=== PATIENT | female | born 1965 | race Caucasian/White ===

== ENCOUNTER 2017-11-27 19:45 | Inpatient (IN) | payer OTHER ==
[2017-11-27 20:35] LABS: AUTOMATED NEUTROPHIL # 21.5 TH/MM3 (1.8-7.7); BASOPHIL # 0.4 TH/MM3 (0-0.2); BASOPHIL % 1.7 % (0.0-2.0); EOSINOPHIL % 0.1 % (0.0-4.0); HEMATOCRIT 46.1 % (35.0-46.0); HEMOGLOBIN 15.5 GM/DL (11.6-15.3); LYMPH % 6.3 % (9.0-44.0); LYMPHOCYTE # 1.5 TH/MM3 (1.0-4.8); MEAN CELL VOLUME 94.6 FL (80.0-100.0); MEAN CORPUSCULAR HEMOGLOBIN 31.8 PG (27.0-34.0); MEAN CORPUSCULAR HGB CONC 33.6 % (32.0-36.0); MEAN PLATELET VOLUME 9.4 FL (7.0-11.0); MONO % 3.6 % (0.0-8.0); MONOCYTE # 0.9 TH/MM3 (0-0.9); NEUT % 88.3 % (16.0-70.0); PLATELET COUNT 241 TH/MM3 (150-450); RED BLOOD COUNT 4.87 MIL/MM3 (4.00-5.30); RED CELL DISTRIBUTION WIDTH 11.5 % (11.6-17.2); WHITE BLOOD COUNT 24.3 TH/MM3 (4.0-11.0)
[2017-11-27 20:36] LABS: HEMO FLAGS DIFF FINAL
[2017-11-27 20:44] LABS: CHLORIDE 99 MEQ/L (98-107); POTASSIUM 3.9 MEQ/L (3.5-5.1); SODIUM (NA) 136 MEQ/L (136-145)
[2017-11-27 20:47] LABS: ALBUMIN 3.3 GM/DL (3.4-5.0); ANION GAP 15 MEQ/L (5-15); BICARBONATE 21.6 MEQ/L (21.0-32.0); CALCIUM 8.8 MG/DL (8.5-10.1)
[2017-11-27 20:48] LABS: BLOOD UREA NITROGEN 22 MG/DL (7-18); GLUCOSE,RANDOM 131 MG/DL (74-106)
[2017-11-27 20:50] LABS: ALT (GPT) 22 U/L (10-53); AST (GOT) 14 U/L (15-37)
[2017-11-27 20:51] LABS: GLOMERULAR FILTRATION RATE 19 ML/MIN (>89)
[2017-11-27 20:52] LABS: TOTAL BILIRUBIN ADULT 0.6 MG/DL (0.2-1.0); TOTAL PROTEIN 6.7 GM/DL (6.4-8.2)
[2017-11-27 20:53] LABS: ALKALINE PHOSPHATASE 63 U/L (45-117)
[2017-11-27] MEDS: ONDANSETRON ODT 4 MG TAB PO (21:08)
[2017-11-27] MEDS: SODIUM CHLOR 0.9% 1000 ML INJ 1,000 ML IV ×2 (21:08→23:01)
[2017-11-27] MEDS: SODIUM CHLOR 0.9% 1000 ML INJ 800 ML IV (21:08)
[2017-11-27 21:58] LABS: BILIRUBIN, URINE SMALL (NEG); BLOOD, URINE MOD (NEG); GLUCOSE,URINE NEG (NEG); KETONE, URINE NEG (NEG); NITRITE,URINE NEG (NEG); URINE COLOR YELLOW (YELLW/STRAW); URINE LEUKOCYTE ESTERASE TRACE (NEG)
[2017-11-27 22:38] LABS: HYALINE CAST, URINE 50-100 /lpf (RARE); MUCUS URINE MOD /lpf (OCC)
[2017-11-27 22:39] LABS: BACTERIA, URINE MANY /hpf; COMMENT (UR) CULTURE INDICATED; CULTURE IF INDICATED CULTURE INDICATED; RBC, URINE 0-3 /hpf (0-3)
[2017-11-27 22:44] LABS: LACTIC ACID SEPSIS PROTOCOL 4.9 mmol/L (0.4-2.0)
[2017-11-27 22:51] LABS: LACTIC ACID GHOST NOT REPORTABLE
[2017-11-27] MEDS: metroNIDAZOLE 500 MG INJ 100 ML IV (23:01)
[2017-11-27] MEDS ORDERED: ACETAMINOPHEN 325 MG TAB PO (23:15)
[2017-11-27] MEDS ORDERED: SENNOSIDES 8.6 MG TAB PO (23:15)
[2017-11-27] MEDS: NURSING INFORMATION XX (23:15)
[2017-11-27] MEDS ORDERED: CHLORHEXIDINE GLUCONATE 2 % 1 PACK (2 CLOTHS) TOP (23:15)
[2017-11-27] MEDS ORDERED: LACTULOSE SYRUP 20 GM/30 ML CUP PO (23:15)
[2017-11-27] MEDS ORDERED: SODIUM CHLORIDE 0.9% FLUSH 10 ML FLUSH IV FLUSH (23:15)
[2017-11-27] MEDS ORDERED: METOCLOPRAMIDE HCL 10 MG/2 ML VIAL IV PUSH (23:15)
[2017-11-27] MEDS ORDERED: RESP: ALBUTEROL 2.5 MG/IPRATROPIUM 0.5 MG NEB (PRN) INH (23:15)
[2017-11-27] MEDS ORDERED: BISACODYL 10 MG SUPP RECTAL (23:15)
[2017-11-27] MEDS ORDERED: MAGNESIUM HYDROXIDE SUSP 30 ML CUP PO (23:15)
[2017-11-28] MEDS: SODIUM CHLOR 0.9% 1000 ML INJ 1,000 ML IV ×4 (00:07→03:34)
[2017-11-28] MEDS: FAMOTIDINE 20 MG/2 ML VIAL IV PUSH ×3 (00:26→20:57)
[2017-11-28] MEDS: CIPROFLOXACIN 400 MG PREMIX 200 ML IV ×3 (00:26→21:44)
[2017-11-28 02:56] LABS: LACTIC ACID 3.4 mmol/L (0.4-2.0)
[2017-11-28] MEDS: CHLORHEXIDINE GLUCONATE 2 % 1 PACK (2 CLOTHS) TOP (04:00)
[2017-11-28 05:15] LABS: AUTOMATED NEUTROPHIL # 12.1 TH/MM3 (1.8-7.7); BASOPHIL % 0.2 % (0.0-2.0); HEMATOCRIT 36.3 % (35.0-46.0); HEMOGLOBIN 11.4 GM/DL (11.6-15.3); LYMPH % 5.7 % (9.0-44.0); LYMPHOCYTE # 0.8 TH/MM3 (1.0-4.8); MEAN CELL VOLUME 95.6 FL (80.0-100.0); MEAN CORPUSCULAR HGB CONC 31.4 % (32.0-36.0); MEAN PLATELET VOLUME 9.8 FL (7.0-11.0); MONO % 4.2 % (0.0-8.0); MONOCYTE # 0.6 TH/MM3 (0-0.9); NEUT % 89.9 % (16.0-70.0); PLATELET COUNT 173 TH/MM3 (150-450); RED BLOOD COUNT 3.79 MIL/MM3 (4.00-5.30); RED CELL DISTRIBUTION WIDTH 11.9 % (11.6-17.2); WHITE BLOOD COUNT 13.5 TH/MM3 (4.0-11.0)
[2017-11-28 05:18] LABS: INTERNATIONAL NORMALIZED RATIO 1.4 RATIO; PROTHROMBIN TIME - PATIENT 14.4 SEC (9.8-11.6)
[2017-11-28 05:25] LABS: LACTIC ACID 2.9 mmol/L (0.4-2.0)
[2017-11-28 05:33] LABS: ALBUMIN 2.1 GM/DL (3.4-5.0); ALKALINE PHOSPHATASE 39 U/L (45-117); ALT (GPT) 15 U/L (10-53); ANION GAP 9 MEQ/L (5-15); AST (GOT) 12 U/L (15-37); BICARBONATE 20.2 MEQ/L (21.0-32.0); BLOOD UREA NITROGEN 16 MG/DL (7-18); CALCIUM 6.7 MG/DL (8.5-10.1); CALCIUM-PROTEIN CORRECTED 7.9 MG/DL (8.5-10.1); CHLORIDE 114 MEQ/L (98-107); CREATININE 0.97 MG/DL (0.50-1.00); GLOMERULAR FILTRATION RATE 60 ML/MIN (>89); GLUCOSE,RANDOM 101 MG/DL (74-106); MAGNESIUM 1.6 MG/DL (1.5-2.5); PHOSPHORUS 2.9 MG/DL (2.5-4.9); POTASSIUM 3.4 MEQ/L (3.5-5.1); SODIUM (NA) 143 MEQ/L (136-145); TOTAL BILIRUBIN ADULT 0.3 MG/DL (0.2-1.0); TOTAL PROTEIN 4.7 GM/DL (6.4-8.2)
[2017-11-28 05:38] LABS: MRSA PCR SURVEILLANCE MRSA NOT DETECTED (NOT DETECT)
[2017-11-28 05:41] LABS: HEMO FLAGS DIFF FINAL
[2017-11-28] MEDS ORDERED: SODIUM PHOSPHATE INJ 30 MMOL in SODIUM CHLOR 0.9% 250 ML INJ 240 ML IV (06:15)
[2017-11-28] MEDS ORDERED: POTASSIUM PHOSPHATE MONOBASIC 500 MG TAB PO (06:15)
[2017-11-28] MEDS ORDERED: MAGNESIUM SULFATE INJ 2 GM in SODIUM CHLORIDE 0.9% INJ 96 ML IV (06:15)
[2017-11-28] MEDS ORDERED: MAGNESIUM SULFATE INJ 4 GM in SODIUM CHLORIDE 0.9% INJ 92 ML IV (06:15)
[2017-11-28] MEDS ORDERED: POTASSIUM PHOSPHATE MONOBASIC 500 MG TAB PO/TUBE (06:15)
[2017-11-28] MEDS ORDERED: POTASSIUM CHLOR 40 MEQ PREMIX 100 ML IV ×2 (06:15)
[2017-11-28] MEDS ORDERED: POTASSIUM PHOSPHATE INJ 30 MMOL in SODIUM CHLOR 0.9% 250 ML INJ 250 ML IV (06:15)
[2017-11-28] MEDS: SODIUM CHLORIDE 0.9% FLUSH 10 ML FLUSH IV FLUSH ×2 (06:52→20:58)
[2017-11-28] MEDS: LACTATED RINGER'S 1000 ML INJ 1,000 ML IV ×2 (06:57→17:26)
[2017-11-28] MEDS: DOCUSATE SODIUM 50 MG/SENNA 8.6 MG TAB PO ×2 (07:12→20:59)
[2017-11-28] MEDS: ENOXAPARIN SODIUM 30 MG/0.3 ML SYRINGE SQ (07:18)
[2017-11-28] MEDS: metroNIDAZOLE 500 MG TAB PO ×3 (07:18→21:44)
[2017-11-28] MEDS: MAGNESIUM OXIDE 400 MG TAB PO (09:51)
[2017-11-28] MEDS ORDERED: CHLORHEXIDINE GLUCONATE 2 % 1 PACK (2 CLOTHS)(extra cloths) TOPICAL (10:00)
[2017-11-28] MEDS: ONDANSETRON HCL 4 MG/2 ML VIAL IV PUSH (10:58)
[2017-11-28] MEDS: POTASSIUM CHLOR 20 MEQ PREMIX 100 ML IV ×2 (11:04→13:13)
[2017-11-28 11:51] LABS: C. DIFF EPI 027 PRESUMPTIVE NEGATIVE (NEGATIVE); C. DIFF TOXIN PCR NEGATIVE (NEGATIVE)
[2017-11-28] MEDS: ACETAMIN 325 MG/BUTALBITAL 50 MG/CAFFEINE 40 MG TAB PO ×2 (13:13→18:40)
[2017-11-29] MEDS: ACETAMIN 325 MG/BUTALBITAL 50 MG/CAFFEINE 40 MG TAB PO ×2 (00:02→07:56)
[2017-11-29] MEDS: CHLORHEXIDINE GLUCONATE 2 % 1 PACK (2 CLOTHS)(taper/protocol) TOPICAL (04:00)
[2017-11-29] MEDS: CHLORHEXIDINE GLUCONATE 2 % 1 PACK (2 CLOTHS) TOP (04:00)
[2017-11-29 05:26] LABS: CHLORIDE 112 MEQ/L (98-107); POTASSIUM 3.2 MEQ/L (3.5-5.1); SODIUM (NA) 143 MEQ/L (136-145)
[2017-11-29 05:29] LABS: HEMATOCRIT 33.8 % (35.0-46.0); HEMOGLOBIN 11.1 GM/DL (11.6-15.3); MEAN CELL VOLUME 95.3 FL (80.0-100.0); MEAN CORPUSCULAR HEMOGLOBIN 31.4 PG (27.0-34.0); MEAN CORPUSCULAR HGB CONC 32.9 % (32.0-36.0); MEAN PLATELET VOLUME 9.4 FL (7.0-11.0); PLATELET COUNT 144 TH/MM3 (150-450); RED BLOOD COUNT 3.55 MIL/MM3 (4.00-5.30); RED CELL DISTRIBUTION WIDTH 11.4 % (11.6-17.2); REVIEW FLAG FINAL; WHITE BLOOD COUNT 8.6 TH/MM3 (4.0-11.0)
[2017-11-29 05:36] LABS: ANION GAP 7 MEQ/L (5-15); BICARBONATE 24.1 MEQ/L (21.0-32.0); BLOOD UREA NITROGEN 5 MG/DL (7-18); CALCIUM 8.1 MG/DL (8.5-10.1); CREATININE 0.53 MG/DL (0.50-1.00); GLOMERULAR FILTRATION RATE 120 ML/MIN (>89); GLUCOSE,RANDOM 105 MG/DL (74-106)
[2017-11-29] MEDS: metroNIDAZOLE 500 MG TAB PO ×2 (05:53→13:51)
[2017-11-29] MEDS: LACTATED RINGER'S 1000 ML INJ 1,000 ML IV ×4 (05:54→20:46)
[2017-11-29] MEDS: DOCUSATE SODIUM 50 MG/SENNA 8.6 MG TAB PO ×2 (07:17→20:45)
[2017-11-29] MEDS: ENOXAPARIN SODIUM 30 MG/0.3 ML SYRINGE SQ (07:55)
[2017-11-29] MEDS: FAMOTIDINE 20 MG/2 ML VIAL IV PUSH ×2 (07:56→20:45)
[2017-11-29] MEDS: SODIUM CHLORIDE 0.9% FLUSH 10 ML FLUSH IV FLUSH ×2 (07:56→20:45)
[2017-11-29] MEDS: POTASSIUM CHLORIDE 25 MEQ EFFERVESCENT TAB PO (07:57)
[2017-11-29] MEDS: CIPROFLOXACIN 400 MG PREMIX 200 ML IV ×2 (09:15→20:46)
[2017-11-29] MEDS: ONDANSETRON HCL 4 MG/2 ML VIAL IV PUSH (11:16)
[2017-11-29] MEDS: ALUMINUM/MAGNESIUM/SIMETH 30 ML CUP PO (15:00)
[2017-11-29] MEDS ORDERED: ALUMINUM/MAGNESIUM/SIMETH 30 ML CUP PO (15:00)
[2017-11-29] MEDS: ACETAMINOPHEN/HYDROcodone 325 MG/5 MG TAB PO ×3 (15:03→22:20)
[2017-11-29] MEDS: METOCLOPRAMIDE HCL 10 MG/2 ML VIAL IV PUSH ×2 (15:03→22:21)
[2017-11-29] MEDS: ENALAPRILAT 1.25 MG/ML VIAL IV PUSH (22:11)
[2017-11-29] MEDS: POTASSIUM CHLOR 20 MEQ PREMIX 100 ML IV (23:26)
[2017-11-30] MEDS: POTASSIUM CHLOR 20 MEQ PREMIX 100 ML IV ×2 (01:12→03:23)
[2017-11-30] MEDS: CHLORHEXIDINE GLUCONATE 2 % 1 PACK (2 CLOTHS) TOP (03:44)
[2017-11-30] MEDS: ACETAMIN 325 MG/BUTALBITAL 50 MG/CAFFEINE 40 MG TAB PO ×2 (03:47→17:02)
[2017-11-30] MEDS: CHLORHEXIDINE GLUCONATE 2 % 1 PACK (2 CLOTHS)(taper/protocol) TOPICAL (03:47)
[2017-11-30] MEDS: LACTATED RINGER'S 1000 ML INJ 1,000 ML IV (05:22)
[2017-11-30 06:20] LABS: HEMATOCRIT 33.8 % (35.0-46.0); HEMOGLOBIN 10.9 GM/DL (11.6-15.3); MEAN CELL VOLUME 95.1 FL (80.0-100.0); MEAN CORPUSCULAR HEMOGLOBIN 30.7 PG (27.0-34.0); MEAN CORPUSCULAR HGB CONC 32.3 % (32.0-36.0); MEAN PLATELET VOLUME 9.5 FL (7.0-11.0); PLATELET COUNT 156 TH/MM3 (150-450); RED BLOOD COUNT 3.56 MIL/MM3 (4.00-5.30); RED CELL DISTRIBUTION WIDTH 11.1 % (11.6-17.2); REVIEW FLAG FINAL; WHITE BLOOD COUNT 8.1 TH/MM3 (4.0-11.0)
[2017-11-30 06:38] LABS: ANION GAP 6 MEQ/L (5-15); BICARBONATE 24.1 MEQ/L (21.0-32.0); BLOOD UREA NITROGEN 2 MG/DL (7-18); CHLORIDE 113 MEQ/L (98-107); CREATININE 0.38 MG/DL (0.50-1.00); GLOMERULAR FILTRATION RATE 176 ML/MIN (>89); GLUCOSE,RANDOM 100 MG/DL (74-106); SODIUM (NA) 143 MEQ/L (136-145)
[2017-11-30] MEDS: ENALAPRILAT 1.25 MG/ML VIAL IV PUSH (08:14)
[2017-11-30] MEDS: ENOXAPARIN SODIUM 30 MG/0.3 ML SYRINGE SQ (08:24)
[2017-11-30] MEDS: FAMOTIDINE 20 MG/2 ML VIAL IV PUSH (08:24)
[2017-11-30] MEDS: SODIUM CHLORIDE 0.9% FLUSH 10 ML FLUSH IV FLUSH ×2 (08:25→21:49)
[2017-11-30] MEDS: DOCUSATE SODIUM 50 MG/SENNA 8.6 MG TAB PO (09:00)
[2017-11-30] MEDS: ACETAMINOPHEN/HYDROcodone 325 MG/5 MG TAB PO (12:08)
[2017-11-30] MEDS: LORazepam 0.5 MG TAB PO (12:08)
[2017-11-30] MEDS: ATENOLOL 25 MG TAB PO ×2 (12:08→21:48)
[2017-11-30] MEDS: CIPROFLOXACIN 400 MG PREMIX 200 ML IV (12:08)
[2017-11-30] MEDS: METOCLOPRAMIDE HCL 10 MG/2 ML VIAL IV PUSH (12:08)
[2017-11-30] MEDS: CIPROFLOXACIN 500 MG TAB PO (21:48)
[2017-12-01] MEDS: CHLORHEXIDINE GLUCONATE 2 % 1 PACK (2 CLOTHS) TOP (04:00)
[2017-12-01] MEDS: CHLORHEXIDINE GLUCONATE 2 % 1 PACK (2 CLOTHS)(taper/protocol) TOPICAL (04:00)
[2017-12-01 07:53] LABS: CHLORIDE 111 MEQ/L (98-107); POTASSIUM 3.3 MEQ/L (3.5-5.1); SODIUM (NA) 144 MEQ/L (136-145)
[2017-12-01 08:00] LABS: CALCIUM 8.1 MG/DL (8.5-10.1)
[2017-12-01] MEDS: ENOXAPARIN SODIUM 30 MG/0.3 ML SYRINGE SQ (08:00)
[2017-12-01 08:01] LABS: ANION GAP 6 MEQ/L (5-15); BICARBONATE 26.6 MEQ/L (21.0-32.0); BLOOD UREA NITROGEN 7 MG/DL (7-18); GLUCOSE,RANDOM 98 MG/DL (74-106); HEMATOCRIT 34.5 % (35.0-46.0); HEMOGLOBIN 10.9 GM/DL (11.6-15.3); MEAN CELL VOLUME 95.4 FL (80.0-100.0); MEAN CORPUSCULAR HEMOGLOBIN 30.3 PG (27.0-34.0); MEAN CORPUSCULAR HGB CONC 31.7 % (32.0-36.0); MEAN PLATELET VOLUME 9.7 FL (7.0-11.0); PLATELET COUNT 168 TH/MM3 (150-450); RED BLOOD COUNT 3.61 MIL/MM3 (4.00-5.30); RED CELL DISTRIBUTION WIDTH 11.6 % (11.6-17.2); REVIEW FLAG FINAL; WHITE BLOOD COUNT 6.4 TH/MM3 (4.0-11.0)
[2017-12-01 08:04] LABS: CREATININE 0.46 MG/DL (0.50-1.00); GLOMERULAR FILTRATION RATE 142 ML/MIN (>89)
[2017-12-01] MEDS: SODIUM CHLORIDE 0.9% FLUSH 10 ML FLUSH IV FLUSH (09:00)
[2017-12-01] MEDS: CIPROFLOXACIN 500 MG TAB PO (09:19)
[2017-12-01] MEDS: ATENOLOL 25 MG TAB PO (09:19)
[2017-12-01] MEDS: ACETAMIN 325 MG/BUTALBITAL 50 MG/CAFFEINE 40 MG TAB PO (09:28)
== END 2017-12-01 10:43 | disposition home or self-care (01) | DRG 871 ==
LOC: PHICU 11-28 09:18 → PH3B 11-30 10:06 → PHED 19:45 → PHEDA 23:19
DX: A41.89 Other specified sepsis (principal); R65.21 Severe sepsis with septic shock; E87.2 Acidosis; N17.9 Acute kidney failure, unspecified; A03.9 Shigellosis, unspecified; A08.39 Other viral enteritis; E83.42 Hypomagnesemia; E83.51 Hypocalcemia; N39.0 Urinary tract infection, site not specified; E86.0 Dehydration; I10 Essential (primary) hypertension; Z85.3 Personal history of malignant neoplasm of breast; E87.6 Hypokalemia; Z90.12 Acquired absence of left breast and nipple
CPT/HCPCS: 71045; 80048; 80053; 81001; 83605; 83735; 84100; 84132; 85025; 85027; 85610; 87040; 87077; 87086; 87186; 87205; 87328; 87329; 87425; 87493; 87506; 87641; 94150; 94640; 94667; 94668; 96361; 96365; 99291-25